=== PATIENT | male | born 1985 | race African-American/Black ===

== ENCOUNTER 2020-02-07 10:34 | Inpatient (IN) | payer OTHER ==
--- NOTE | 2020-02-02 14:24 | HPE ---
HISTORY AND PHYSICAL DATE OF ADMISSION: 02/07/2020 ATTENDING: Fercho Pandey MD CHIEF COMPLAINT: Back pain, pain to the bilateral lower extremities. HISTORY: This is a 34-year-old male patient with progressively worsening back pain that has failed to improve with conservative management to include physical therapy and activity modifications. Studies were consistent with a listhesis at L4-L5 and a central disk at L4-L5. He has elected for surgery for his continued symptoms. He is consented by Dr. Pandey for a lumbar decompression at L4-L5 with a TLIF lumbar interbody fusion, as well as pedicle screw fixation, and the use of iliac bone graft. He has pain with weightbearing activities and activities of daily living. Medical optimization is not required. CURRENT MEDICATIONS: 1. Vitamin D3, one tablet once per day at 125 mcg. 2. Meloxicam 15 mg one tablet once per day. He discontinued that three days ago. 3. Gabapentin 100 mg 1-2 tablets two or three times per day as needed. 4. Amitriptyline 25 mg at bedtime. ALLERGIES: No known drug allergies. MEDICAL CONDITIONS: Lumbar spondylosis, lumbar degenerative disk disease, lumbar spondylolisthesis, symptomatic. Anxiety and depression. REVIEW OF SYSTEMS: Denies fever or chills. Denies chest pain, shortness of breath, or cough. Denies difficulty with breathing. Denies exposure to COVID-19. Denies abdominal pain. Denies nausea and vomiting. He has persistent pain in his back which goes down into his bilateral lower extremities. He has increased pain with activity, bending, walking, running, lifting, and squatting. SOCIAL HISTORY: He does not smoke. He does not use alcohol. He is currently an active duty soldier. PAST MEDICAL HISTORY: 1. Anxiety. 2. Depression. PAST SURGICAL HISTORY: Oral surgery, otherwise no other surgeries. FAMILY HISTORY: Noncontributory. PHYSICAL EXAMINATION: GENERAL: Alert, well-nourished, well-developed male patient. He ambulates with a normal gait. His gait is not wide based. Straight leg raise testing is positive on the left and negative on the right. SKIN: The skin around the back is intact; no erythema, edema, or ecchymosis. EXTREMITIES: Deep tendon reflexes in the knee are 1 at the ankles. Muscle strength is 5/5, equal, and symmetrical in major muscle groups. NECK: Supple without adenopathy or JVD. LUNGS: Lungs are clear to auscultation, without rales or wheeze. HEART: Regular rate and rhythm. ABDOMEN: Bowel sounds are present. VITAL SIGNS: Current vital signs are 5 feet 11 inches, weight 198 pounds, temperature 96.6, blood pressure 126/84, pulse 80, and respirations 18. LABORATORY DATA: None collected. IMPRESSION: Lumbar spondylosis, lumbar spondylolisthesis, bilateral lower extremity radiculopathy. PLAN: He is consented by Dr. Pandey for a L4-L5 decompression at L4-L5 with interbody fusion and TLIF, as well as use of pedicle screws and iliac crest bone graft. His postoperative and preoperative instructions were reviewed to include the importance of being on time, what n.p.o. means, what medications to take, what medications not to take, the importance of stopping NSAIDs five days prior to surgery. He understands being in the hospital for a day. He understands that it is COVID season and there are some difficulties with COVID, and he needs to self quarantine. He has already had his test. He understands the plan. All of his questions were answered. FERCHO PANDEY MD
[~2020-02-07] VITALS: Ht 180.3 cm; Wt 92.0 kg
[~2020-02-07 10:34] MED LIST: ACETAMINOPHEN 1000MG 100ML IV BTL (OFIRMEV) (J0131 PER 10MG) As Ordered ONE; AMIT10TA PO; CelecoXIB (CeleBREX) 100 MG CAP PO ONE; D3400CAP PO; GABA-1171 PO; LIDOCAINE 2% 100MG/5ML SDV (FOR ANES.) As Ordered ONE; LR 1,000 ML IV ONE; MIDAZOLAM INJ 2MG/2ML VIAL (J2250 PER 1MG) As Ordered ONE; ONDANSETRON 4MG/2ML VIAL As Ordered ONE; PERCOCET 5MG/325MG TAB PO ONE; PHENYLephrine HCL 500 MCG/5 ML (100MCG/ML) SYRINGE (J2370) As Ordered ONE; ROCURONIUM BROMIDE 50 MG/5 ML VIAL As Ordered ONE; SUGAMMADEX SODIUM 500 MG/5 ML VIAL (BRIDION) As Ordered ONE; ceFAZolin SOD 2 GM in IV 1 EA IV ONE; dexameTHASONE 4 MG/ML 1ML VIAL (J1100 PER 1MG) As Ordered ONE; ePHEDrine SULFATE 25 MG/5 ML(5MG/ML) SYRINGE As Ordered ONE; fentaNYL 250 MCG/5 ML INJECTION (J3010) As Ordered ONE; propofoL 200 MG/20 ML VIAL As Ordered ONE
[2020-02-07] MEDS ORDERED: GABAPENTIN 300 MG CAP PO ONE (12:00)
[2020-02-07] MEDS ORDERED: THROMBIN SOLN 20,000 UNITS KIT As Ordered ONE (13:44)
[2020-02-07] MEDS ORDERED: LIDOCAINE W/EPINEPHRINE 1% 20ML VIAL As Ordered ONE (13:45)
[2020-02-07] MEDS ORDERED: TRANEXAMIC ACID 100 MG/ML 10ML VIAL As Ordered ONE (13:45)
[2020-02-07] MEDS ORDERED: VANCOMYCIN 500MG/10ML VIAL As Ordered ONE (13:45)
[2020-02-07] MEDS ORDERED: BUPIVACAINE HCL 0.5% 10ML VIAL As Ordered ONE (13:45)
[2020-02-07] MEDS ORDERED: EPINEPHrine INJ 1 MG/ML 1ML AMP As Ordered ONE (13:46)
[2020-02-07] MEDS ORDERED: BACITRACIN PWD 50,000 UNITS VIAL As Ordered ONE (13:46)
[2020-02-07] MEDS ORDERED: BUPIVACAINE LIPOSOME/PF 1.3% 20ML VIAL (13.3MG/ML)(EXPAREL)(C9290 PER1MG) As Ordered ONE (13:46)
[2020-02-07] MEDS ORDERED: dexameTHASONE 4 MG/ML 1ML VIAL (J1100 PER 1MG) As Ordered ONE (15:25)
[2020-02-07] MEDS ORDERED: ROCURONIUM BROMIDE 50 MG/5 ML VIAL As Ordered ONE ×2 (15:29→16:15)
[2020-02-07] MEDS ORDERED: LIDOCAINE 2% 100MG/5ML SDV (FOR ANES.) As Ordered ONE (16:01)
[2020-02-07] MEDS ORDERED: HYDROmorphone HCL 2 MG/ML 1ML VIAL (J1170) As Ordered ONE (16:55)
[2020-02-07] MEDS ORDERED: METHOCARBAMOL 1,000 MG/10 ML VIAL (J2800) As Ordered ONE (17:07)
[2020-02-07] MEDS ORDERED: ceFAZolin 2 GM/D5W 50 ML IV BAG (J0690 PER 500MG) As Ordered ONE (17:38)
[2020-02-07] MEDS ORDERED: KETOROLAC 60MG 2ML VIAL As Ordered ONE (18:39)
--- NOTE | 2020-02-07 18:41 | REP ---
INDICATION: LEFT SIDE BILATERAL L4/5 DISC HERNIATION. COMPARISON: None TECHNIQUE: C-arm device used in [facility]. FINDINGS: Transpedicular screws L4 and L5 bilaterally. L4-[address] Fluoroscopy time 96.4 seconds. IMPRESSION: As above <Electronically signed by Juan José Avery > 02/07/20 [id number]
[2020-02-07] MEDS ORDERED: oxyCODONE 5MG TAB As Ordered ONE (19:52)
[2020-02-07] MEDS ORDERED: LR 1,000 ML IV SCH (20:15)
[2020-02-07] MEDS ORDERED: ONDANSETRON 4MG/2ML VIAL IV PRN ×2 (20:15→21:00)
[2020-02-07] MEDS ORDERED: METOCLOPRAMIDE INJ 10MG/2ML VIAL (J2765 PER 1) IV PRN (20:15)
[2020-02-07] MEDS ORDERED: fentaNYL 100 MCG/2 ML INJECTION (J3010) IV PRN (20:15)
[2020-02-07] MEDS ORDERED: MEPERIDINE INJ 25 MG/ML VIAL (J2175) IV PRN (20:15)
[2020-02-07] MEDS ORDERED: oxyCODONE 5MG TAB PO PRN (20:15)
[2020-02-07] MEDS ORDERED: PROMETHAZINE INJ 25 MG/ML VIAL (J2550) IV PRN (20:30)
[2020-02-07 20:55] VITALS: BP 142/70
[2020-02-07] MEDS ORDERED: PERCOCET 5MG/325MG TAB PO PRN (21:00)
[2020-02-07] MEDS: ceFAZolin SOD 2 GM in IV 1 EA IV SCH (21:11)
[2020-02-07] MEDS: GABAPENTIN 100 MG CAP PO SCH (21:11)
[2020-02-07] MEDS: PERCOCET 5MG/325MG TAB PO PRN (21:14)
[2020-02-07] MEDS ORDERED: HYDROMORPHONE HCL 0.5 MG/ 0.5 ML SYRINGE (J1170 PER 1) IV PRN (21:15)
[2020-02-07 21:25] VITALS: BP 133/69
[2020-02-07 22:25] VITALS: BP 140/69
[2020-02-07 23:22] VITALS: BP 143/98
[2020-02-08] VITALS (8 sets, daily range): BP systolic 108–134; BP diastolic 69–92
[2020-02-08] MEDS: ceFAZolin SOD 2 GM in IV 1 EA IV SCH (05:34)
[2020-02-08] MEDS ORDERED: PERC5TAB12 PO (06:51)
[2020-02-08] MEDS: METAMUCIL (PSYLLIUM) PACKET PO SCH (08:15)
[2020-02-08] MEDS: CYCLOBENZAPRINE 10MG TABLET PO PRN (08:15)
[2020-02-08] MEDS: ASPIRIN 81 MG ENTERIC TAB PO SCH (08:15)
[2020-02-08] MEDS: GABAPENTIN 100 MG CAP PO SCH ×3 (08:26→23:02)
[2020-02-08] MEDS ORDERED: CelecoXIB 400 MG CAP PO ONE (09:00)
[2020-02-08] MEDS: PERCOCET 5MG/325MG TAB PO PRN ×2 (09:33→16:33)
[2020-02-08] MEDS: HYDROMORPHONE HCL 0.5 MG/ 0.5 ML SYRINGE (J1170 PER 1) IV PRN ×2 (11:54→15:00)
[2020-02-08] MEDS ORDERED: LIDOCAINE 2% 100MG/5ML SDV (FOR ANES.) As Ordered ONE (19:42)
[2020-02-08] MEDS ORDERED: fentaNYL 100 MCG/2 ML INJECTION (J3010) As Ordered ONE ×2 (19:42→22:03)
[2020-02-08] MEDS ORDERED: MIDAZOLAM INJ 2MG/2ML VIAL (J2250 PER 1MG) As Ordered ONE (19:42)
[2020-02-08] MEDS ORDERED: propofoL 200 MG/20 ML VIAL As Ordered ONE (19:43)
[2020-02-08] MEDS ORDERED: ONDANSETRON 4MG/2ML VIAL As Ordered ONE (19:43)
[2020-02-08] MEDS ORDERED: KETAMINE HCL 200 MG/20 ML VIAL As Ordered ONE (20:06)
[2020-02-08] MEDS ORDERED: ROCURONIUM BROMIDE 50 MG/5 ML VIAL As Ordered ONE (20:09)
[2020-02-08] MEDS ORDERED: ceFAZolin 2 GM/D5W 50 ML IV BAG (J0690 PER 500MG) As Ordered ONE (20:10)
[2020-02-08] MEDS ORDERED: VANCOMYCIN 500MG/10ML VIAL As Ordered ONE (20:11)
[2020-02-08] MEDS ORDERED: HYDROmorphone HCL 2 MG/ML 1ML VIAL (J1170) As Ordered ONE (20:41)
[2020-02-08] MEDS ORDERED: NEOSPORIN TOP OINT 15GM As Ordered ONE (20:42)
[2020-02-08] MEDS ORDERED: dexameTHASONE 4 MG/ML 1ML VIAL (J1100 PER 1MG) As Ordered ONE (20:42)
[2020-02-08] MEDS ORDERED: PHENYLephrine HCL 500 MCG/5 ML (100MCG/ML) SYRINGE (J2370) As Ordered ONE (20:48)
[2020-02-08] MEDS ORDERED: SUGAMMADEX SODIUM 500 MG/5 ML VIAL (BRIDION) As Ordered ONE (20:48)
[2020-02-08] MEDS: fentaNYL 100 MCG/2 ML INJECTION (J3010) IV PRN ×4 (21:55→22:10)
[2020-02-08] MEDS: oxyCODONE 5MG TAB PO PRN ×2 (21:55→22:25)
[2020-02-08] MEDS ORDERED: LR 1,000 ML IV SCH (22:00)
[2020-02-08] MEDS ORDERED: ONDANSETRON 4MG/2ML VIAL IV PRN ×2 (22:00→22:45)
[2020-02-08] MEDS ORDERED: oxyCODONE 5MG TAB As Ordered ONE ×2 (22:03→22:29)
[2020-02-08] MEDS ORDERED: HYDROMORPHONE HCL 0.5 MG/ 0.5 ML SYRINGE (J1170 PER 1) IV PRN (22:45)
[2020-02-08] MEDS ORDERED: PERCOCET 5MG/325MG TAB PO PRN (23:00)
[2020-02-09 01:15] VITALS: BP 114/75
[2020-02-09] MEDS: CYCLOBENZAPRINE 10MG TABLET PO PRN (02:06)
[2020-02-09] MEDS: PERCOCET 5MG/325MG TAB PO PRN ×4 (02:07→19:52)
[2020-02-09] MEDS: ceFAZolin SOD 2 GM in IV 1 EA IV SCH ×2 (02:07→08:30)
[2020-02-09 02:15] VITALS: BP 117/77
[2020-02-09 03:15] VITALS: BP 114/75
[2020-02-09] MEDS: GABAPENTIN 100 MG CAP PO SCH ×3 (08:30→19:51)
[2020-02-09] MEDS: METAMUCIL (PSYLLIUM) PACKET PO SCH (08:30)
[2020-02-09] MEDS: ASPIRIN 81 MG ENTERIC TAB PO SCH (08:30)
--- NOTE | 2020-02-09 09:14 | RO ---
OPERATIVE NOTE DATE OF OPERATION: 02/08/2020 PREOPERATIVE DIAGNOSIS: Retained Chaparro-Amezquita (BUCKY) drain, lumbar spine. POSTOPERATIVE DIAGNOSIS: Retained Chaparro-Amezquita (BUCKY), lumbar spine. PROCEDURE: Removal of trapped drain lumbar spine wound. SURGEON: Roman Hillman MD. ANESTHESIA: General. ESTIMATED BLOOD LOSS: Less than 50 mL replaced with crystalloid. COMPLICATIONS: None. INDICATIONS FOR PROCEDURE: Xenia is a 34-year-old gentleman who had surgery yesterday. Unfortunately, the drain was entrapped in the wound closure and could not be retrieved. We are brining him back for drain removal. CONSENT: Reviewed in detail with the patient, including josi discussion of the pathology involved, the indication for surgery; risks such as pain, failure, or some other issue. The patient understands and agrees to proceed. DESCRIPTION OF PROCEDURE: Identified in the holding area with site and side verified and brought to the operating room. Once he was anesthetized, he was gently log rolled onto the James frame for exposure. Once I and the brand advocate were comfortable with the patient's positioning, I removed the Prineo dressing by applying Neosporin ointment to its surface and then lifting it off with a cryo. I cut the drain off 4 cm from the skin level. Next once this was accomplished, he was thoroughly prepped and draped in the usual fashion using Betadine prep and pain type solution. Next once this was accomplished, I began the procedure. I stood on the patient's left and I opened his wound with a 10-blade knife, releasing the Vicryl stitches superficially. He had a small hematoma and that was evacuated. Sutures were removed then using a cryo. The lumbar fascia wound was appreciated and I opened the Vicryl stitches there. This allowed retrieval of the drain. I removed the residual Vicryl. I then irrigated with approximately 1 liter of saline solution. Next, I also applied approximately 500 mg of dry vancomycin crystals within this portion of the wound for perioperative infection prophylaxis. I then closed the fascial wounds using 0-Vicryl interrupted stitch. I closed the Annabella's fascia with 0-Vicryl interrupted stitch and I closed the deep dermis using interrupted 3-0 Vicryl stitch. Once this was accomplished, I reapplied a Prineo dressing. Next once the Prineo had dried sufficiently, I did apply a dry ABD pad, gently taped into place with paper tape to protect the Prineo until morning. He will be out of bed in the morning and mobilized tomorrow. The patient received preoperative dose of 2 grams Ancef intravenously and we will maintain on the postoperative 2 grams every six hours x2 doses postoperatively.
--- NOTE | 2020-02-09 10:07 | RO ---
OPERATIVE NOTE DATE OF OPERATION: 02/07/2020 PREOPERATIVE DIAGNOSIS: Left lower extremity radicular pain, lumbar spondylosis at L4-5 including left paracentral disc bulge. POSTOPERATIVE DIAGNOSIS: Left lower extremity radicular pain, lumbar spondylosis at L4-5 including left paracentral disc bulge. PROCEDURE PERFORMED: Left L4 unilateral laminectomy for decompression of the thecal sac and exiting nerve root, left L5 unilateral laminectomy for decompression of the thecal sac and traversing nerve root, posterior interbody fusion, combined type, percutaneous pedicle screw placement, bilateral nonsegmental instrumentation, left iliac crest bone and use and placement of intervertebral biomechanical device. SURGEON: Roman Hillman M.D. ACTUARIAL INTERNSHIP: [place] Goodman PA-C ANESTHESIA: General ESTIMATED BLOOD LOSS: Less than 200 mL, replaced with crystalloid COMPLICATIONS: No complications. COMPONENTS USED: Include the DePuy Viper pedicle screw system as well as DePuy open pedicle screw system, a 12 x 30 mm Richland titanium interbody cage device as well as demineralized bone matrix putty. Consent reviewed in detail including a josi discussion of the pathology involved, procedure proposed, alternatives including doing nothing, the risks including but not limited to pain, failure, incomplete relief, need for additional surgery, nerve injury, infection, bleeding, blood clots and other issues. The patient understands, agrees to proceed with surgery. OPERATIVE COURSE: Identified in the holding area, site and side verified. The patient verified that he was continuing to have symptoms down the left lower extremity. He was brought to the operating room. Anesthesia was administered. He was then positioned in the prone position on the Chaparro frame for exposure of the lumbar spine. SCDs and laura s_ were utilized. Next, once I and the structural engineering project manager were comfortable with the patient's positioning, he was sterilely prepped and draped in the usual fashion for exposure of the lumbar spine. The incision was based on palpation of bony landmarks. The incision was infiltrated with 1% lidocaine with epinephrine. For this case, the left incision was one fingerbreadth to the left parasagittal midline and the percutaneous screw incisions were to the right of midline. Next, we first placed the percutaneous screws on the patient's right side. I utilized loupe magnification as well as a headlamp. I stood on the right, Mr. Goodman on the left. Biplanar fluoroscopy was utilized for this purpose. Next, the incisions were based on fluoroscopic AP images. They were made with a 10 blade. I began at the L5 level. I advanced the dilating trocar to the lateral aspect of the L5 pedicle. Under AP and lateral fluoroscopic visualization, I then docked the 45 mm x 7 mm cannulated pedicle screw to the pedicle shadow at L5. I kept it in place using the mallet and then I continued advancing the guidewire using the screwdriver jig device until the guidewire crossed the vertebral body pedicle junction. I verified placement of this guidewire fluoroscopically in the AP and lateral plane. Next, once this was accomplished, I then held the guidewire secure with the Osmany collar and advanced the pedicle screw under fluoroscopic visualization into the L5 vertebral body. Its position was verified with AP and lateral fluoroscopy. Next, I then accomplished placement of the L4 pedicle screw in similar fashion for the 45 mm Viper L4 pedicle screw. Next, once we verified the fluoroscopically, we then removed one of the fluoroscopes. Next, I switched sides with Mr. Goodman and made the incision for the laminectomy on the left of midline using a 10-blade knife. We developed down through skin and subcuticular tissues to the lumbar fascia. The lumbar fascia was then reflected off the spinous process of 4 and 5 and developed down over the L4 lamina and L5 lamina. We then developed a dissection over the 4-5 facet complex and exposed the L5 transverse process and exposed the L4 transverse process and the 3-4 facet complex, taking care to preserve the facet capsule there. Next, once this was accomplished, we placed the retractor. I then utilized Leksells to remove posterior lamina of 4 and partially of the facet of 4. I then utilized a high-speed bur to implement a left unilateral laminectomy of L4 extending through the inferior facet of 4 up through bare area of 4. We extended the left unilateral laminectomy through L5 bare area and the superior facet of 5. This was accomplished to decompress the thecal sac, exiting and traversing nerve roots. Next, I elevated the ligamentum flavum using curved curettes and removed it using Kerrisons. We decompressed the subarticular space and removed additional medial aspects of the remaining L5 superior facet on the left. Next, I was able to sweep the dura medially and Mr. Goodman secured it medially using the Kai retractor. Next, the bulging disc annulus complex at 4-5 was exposed and directly visualized, utilized bipolar cautery to coagulate the dural veins over the annulus and sweep them medially. An 11 blade was utilized to open the L4-5 left annulus and then I removed the annulus and disc material using pituitaries followed by conical reamers up through a size 11 mm followed by ring curettes and rasps. Once this was accomplished, we irrigated and inspected for bleeding, no bleeding, no active CSF leak. Next, we then obtained iliac crest from the left posterosuperior iliac crest through a separate fascial incision. The iliac crest was removed using Leal curettes and Leksells and retained. Next, I then irrigated with TXA at the iliac crest wound, closed the fascial tissue using interrupted stitch. Next, Mr. Goodman stepped to the back table to prepare the intervertebral biomechanical device cage, packing it with bone graft while I continued to prepare the disc space and I did move the trial 11 x 30 Richland cage trial into the intervertebral space. We verified placement of the cage trial using AP and lateral fluoroscopy. It was appreciated to be midline in its distal extent and fully inserted. Next, once this was accomplished, the trial was removed. I obtained additional iliac crest bone graft mixed with DBX putty and local bone fragments which had been placed in the bone funnel. This was tamped into the interspace at L4-5. Next, once this was accomplished, we obtained the packed intervertebral biomechanical device cage, the Richland cage and it was implanted, tamping it into place. We verified placement of the biomechanical device in AP and lateral fluoroscopy at this time. Next, once this was accomplished, we inspected the cage and directly visualized the posterior cage, irrigated. There was no active bleeding. We did also irrigate and let stand TXA solution for approximately one minute. Next, once this was accomplished, we placed the pedicle screws open on the left at L4 and L5. This was accomplished by opening the mamillary process of L4 using the high-speed bur, passing the ball-tipped guidewire in through the pedicle followed by the pedicle finder, followed by the ball-tipped guidewire to verify the pedicle to verify the pedicle tract, followed by tapping with the 6 mm tap followed by placement of a 7 mm screw, 45 mm length after verifying the pedicle tract with the ball-tipped wire. Next, the L5 level was approached in a similar fashion including use of the ball-tipped guidewire to verify pedicle tract in the anterior extent of the vertebral body via palpation. Next, once this was accomplished, we placed the connecting nitin and compressed across the disc space. I locked the connecting nitin, [address] by using a torque, counter-torque device and we also utilized the compressor as well as the torque, counter-torque device to lock the inferior screw and the connecting nitin under compression. Next, attention was turned to the contralateral side, the percutaneous screws. I moved the 45 mm connecting nitin into the pedicle screw heads, verified this using fluoroscopy as well as palpation. We then placed end caps. We compressed across the nitin and locked end caps into place using torque, counter-torque device. Next, irrigation was again accomplished. Next, once this was accomplished, all retractors were removed. Remaining bone graft was placed over the transverse processes of L4 and 5 on the patient's left side including local bone, some remaining iliac crest bone and demineralized bone matrix putty. Next, a drain was placed exiting superolaterally to the left. Next, the fascial tissue was closed with interrupted stitch. Deep dermis was closed with interrupted stitch. The wound was approximated at the skin level using Prineo dressing. The patient was then logrolled to hospital bed, extubated and moved to recovery room in good condition. For further details, please refer to the medical record. NANO
[2020-02-09] MEDS: CEPHALEXIN 500 MG CAP PO SCH ×2 (10:57→17:44)
[2020-02-09 14:00] VITALS: BP 171/81
[2020-02-09 18:00] VITALS: BP 132/78
[2020-02-09 22:00] VITALS: BP 140/78
[2020-02-10] MEDS: PERCOCET 5MG/325MG TAB PO PRN ×2 (02:42→07:54)
[2020-02-10] MEDS: CEPHALEXIN 500 MG CAP PO SCH ×3 (02:42→17:13)
[2020-02-10 06:00] VITALS: BP 116/63
[2020-02-10] MEDS ORDERED: MAGNESIUM CITRATE 300 ML BTL PO ONE (06:15)
[2020-02-10] MEDS: GABAPENTIN 100 MG CAP PO SCH ×3 (09:02→19:23)
[2020-02-10] MEDS: ASPIRIN 81 MG ENTERIC TAB PO SCH (09:02)
[2020-02-10] MEDS: METAMUCIL (PSYLLIUM) PACKET PO SCH (11:51)
[2020-02-10 14:00] VITALS: BP 120/65
[2020-02-10] MEDS: ACETAMINOPHEN TAB 650MG DOSE (2X325MG) PO PRN (15:19)
[2020-02-10 17:11] VITALS: BP 130/78
[2020-02-10] MEDS: CYCLOBENZAPRINE 10MG TABLET PO PRN (19:23)
[2020-02-10 19:26] VITALS: BP 141/91
[2020-02-11] MEDS: ACETAMINOPHEN TAB 650MG DOSE (2X325MG) PO PRN ×2 (02:27→19:05)
[2020-02-11] MEDS: CYCLOBENZAPRINE 10MG TABLET PO PRN (02:27)
[2020-02-11] MEDS: CEPHALEXIN 500 MG CAP PO SCH ×3 (02:27→17:17)
[2020-02-11 06:16] VITALS: BP 122/85
[2020-02-11] MEDS: ASPIRIN 81 MG ENTERIC TAB PO SCH (08:33)
[2020-02-11] MEDS: METAMUCIL (PSYLLIUM) PACKET PO SCH (08:33)
[2020-02-11] MEDS: GABAPENTIN 100 MG CAP PO SCH ×3 (08:33→20:15)
[2020-02-11] MEDS ORDERED: LACTULOSE 20 GM/30 ML SYRUP UD PO SCH (09:00)
[2020-02-11 15:46] VITALS: BP 123/76
[2020-02-11 20:19] VITALS: BP 141/92
[2020-02-12] MEDS: ACETAMINOPHEN TAB 650MG DOSE (2X325MG) PO PRN ×2 (01:50→20:11)
[2020-02-12] MEDS: CEPHALEXIN 500 MG CAP PO SCH ×3 (01:50→18:12)
[2020-02-12 05:00] VITALS: BP 138/81
[2020-02-12] MEDS: ASPIRIN 81 MG ENTERIC TAB PO SCH (07:55)
[2020-02-12] MEDS: GABAPENTIN 100 MG CAP PO SCH ×3 (07:56→20:11)
[2020-02-12] MEDS: METAMUCIL (PSYLLIUM) PACKET PO SCH (09:00)
[2020-02-12 14:41] VITALS: BP 124/78
[2020-02-12 20:08] VITALS: BP 125/78
[2020-02-13] MEDS: CEPHALEXIN 500 MG CAP PO SCH ×2 (03:38→10:19)
[2020-02-13 06:20] VITALS: BP 124/70
[2020-02-13] MEDS: ASPIRIN 81 MG ENTERIC TAB PO SCH (08:32)
[2020-02-13] MEDS: METAMUCIL (PSYLLIUM) PACKET PO SCH (08:32)
[2020-02-13] MEDS: GABAPENTIN 100 MG CAP PO SCH (08:32)
--- NOTE | 2020-02-16 11:01 | DSES ---
DISCHARGE SUMMARY DATE OF ADMISSION: 02/07/2020 DATE OF DISCHARGE: 02/13/2020 DATE OF DICTATION: 02/16/2020 ATTENDING PHYSICIAN: FERCHO PANDEY MD CHIEF COMPLAINT: Left lower extremity radicular pain with lumbar spondylosis at L4-5 including a left paracentral disc bulge. OTHER DIAGNOSES: 1. Anxiety. 2. Depression. DISCHARGE DIAGNOSIS: 1. Lumbar spondylosis with spondylolisthesis and bilateral lower extremity radiculopathy status post L4-5 decompression with interbody fusion and TLIF as well as use of pedicle screws and iliac crest bone graft. HISTORY: The patient is a 34-year-old male who had progressively worsening back pain that failed to improve with conservative management to include Physical Therapy and activity modifications. Studies were consistent with a listhesis at L4-5 and central disc protrusion at L4-L5. He has elected for surgery for his continued symptoms. He consented for a lumbar decompression at L4-L5 with a TLIF lumbar interbody fusion as well as pedicle screw fixation and the use of iliac bone graft. He consented for this surgery with Dr. Pandey. The day after surgery he also consented for a removal of a trapped drain in his lumbar spine wound with Dr. Pandey. OPERATION PERFORMED: Left L4 and L5 unilateral laminectomies for decompression of the thecal sac and exiting nerve root. Posterior interbody fusion combined type with percutaneous pedicle screw placement, bilateral non-segmental instrumention, left iliac crest bone and placement of intervertebral biomechanical device. HOSPITAL COURSE: The patient underwent an L4-L5 decompression with interbody fusion and TLIF as well as use of pedicle screws and iliac crest bone graft under general anesthesia which was uneventful. During his hospital course, it was noted that he had a drain entrapped in the wound closure and could not be retrieved. He had to go back to the Operating Room where he was put under general anesthesia to remove the trapped drain from his lumbar spine wound. The patient was discharged on oral pain medications and will resume his preoperative medications and diet. He will use his brace and thromboembolic deterrent stockings as directed. He will follow-up in our office in 7 to 10 days for reevaluation. He will go ahead and give us a call sooner if there is any increase in pain, redness, drainage, numbness, tingling, or radiating pain in the lower extremities, problems with bowel or bladder control issues, fever greater than 101 degrees or any other concerns. Please see medical records for additional details.
== END 2020-02-13 13:20 | disposition home or self-care (01) | DRG 460 ==
LOC: M OR 10:34 → M MS5PR 20:30
PROVIDERS: ADMIT Orthopaedic Surgery; ATTEND Orthopaedic Surgery
PROC: 00NY0ZZ Release Lumbar Spinal Cord, Open Approach (ICD-10-PCS; 2020-02-07)
PROC: 0SB20ZZ Excision of Lumbar Vertebral Disc, Open Approach (ICD-10-PCS; 2020-02-07)
PROC: 0SG1071 Fusion of 2 or more Lumbar Vertebral Joints with Autologous Tissue Substitute, Posterior Approach, Posterior Column, Open Approach (ICD-10-PCS; principal; 2020-02-07 12:30)
PROC: 00P Central Nervous System and Cranial Nerves, Removal (ICD-10-PCS; 2020-02-08)
PROC: 00CU0ZZ Extirpation of Matter from Spinal Canal, Open Approach (ICD-10-PCS; 2020-02-08)
DX: M47.26 Other spondylosis with radiculopathy, lumbar region (principal); M96.840 Postprocedural hematoma of a musculoskeletal structure following a musculoskeletal system procedure; T84.428A Displacement of other internal orthopedic devices, implants and grafts, initial encounter; M51.16 Intervertebral disc disorders with radiculopathy, lumbar region; F41.9 Anxiety disorder, unspecified; F32.9 Major depressive disorder, single episode, unspecified; Z79.899 Other long term (current) drug therapy; Y83.8 Other surgical procedures as the cause of abnormal reaction of the patient, or of later complication, without mention of misadventure at the time of the procedure

== ENCOUNTER → 2020-11-12 | Outpatient (REF) ==
[~2020-11-12] MED LIST changes: -ACETAMINOPHEN 1000MG 100ML IV BTL (OFIRMEV) (J0131 PER 10MG) As Ordered ONE; -AMIT10TA PO; +AMIT10TA7 PO; -CelecoXIB (CeleBREX) 100 MG CAP PO ONE; -LIDOCAINE 2% 100MG/5ML SDV (FOR ANES.) As Ordered ONE; -LR 1,000 ML IV ONE; -MIDAZOLAM INJ 2MG/2ML VIAL (J2250 PER 1MG) As Ordered ONE; -ONDANSETRON 4MG/2ML VIAL As Ordered ONE; +PERC5TAB12 PO; -PERCOCET 5MG/325MG TAB PO ONE; -PHENYLephrine HCL 500 MCG/5 ML (100MCG/ML) SYRINGE (J2370) As Ordered ONE; -ROCURONIUM BROMIDE 50 MG/5 ML VIAL As Ordered ONE; -SUGAMMADEX SODIUM 500 MG/5 ML VIAL (BRIDION) As Ordered ONE; -ceFAZolin SOD 2 GM in IV 1 EA IV ONE; -dexameTHASONE 4 MG/ML 1ML VIAL (J1100 PER 1MG) As Ordered ONE; -ePHEDrine SULFATE 25 MG/5 ML(5MG/ML) SYRINGE As Ordered ONE; -fentaNYL 250 MCG/5 ML INJECTION (J3010) As Ordered ONE; -propofoL 200 MG/20 ML VIAL As Ordered ONE
--- NOTE | 2020-11-12 10:07 | REP ---
INDICATION: PAIN COMPARISON: None. TECHNIQUE: PA and lateral. FINDINGS: The mediastinum and cardiac silhouette are normal. The lung rock are clear and without acute consolidation, effusion, or pneumothorax. The skeletal structures are intact and normal. IMPRESSION: No focal consolidation or effusion.. <Electronically signed by Anastacio Dang > 11/12/20 [id number]
--- NOTE | 2020-11-12 10:09 | REP ---
INDICATION: PAIN COMPARISON: None. TECHNIQUE: AP, lateral, coned-down views of the lumbar spine. FINDINGS: Patient is noted to be status post partial laminectomy with posterior fixation and prosthetic disc at the L4-5 level. Alignment and lordosis maintained. There is no evidence for acute fracture/compression injury or subluxation. Remainder of the disc spaces appear normal. IMPRESSION: 1. Postoperative changes. 2. No acute fracture/compression injury or subluxation. <Electronically signed by Anastacio Dang > 11/12/20 [id number]
== END ==
LOC: M PLAIMG 09:39
PROVIDERS: ATTEND Internal Medicine
DX: Z00.00 Encounter for general adult medical examination without abnormal findings (principal)